=== PATIENT | female | born 1980 | race Caucasian/White ===

== ENCOUNTER → 2019-12-09 | Outpatient (CLI) | payer BC ==
[~2019-12-09] MED LIST: HYDACE5 PO
[2019-12-13 16:10] LABS: HPV 16 Negative (Negative); HPV 18 Negative (Negative); HPV OTHER HR TYPES Negative (Negative)
== END | disposition home or self-care (01) ==
LOC: LAB SHORT 17:50 → OLS 17:50
PROVIDERS: Student in an Organized Health Care Education/Training Program
DX: Z12.4 Encounter for screening for malignant neoplasm of cervix (principal)
CPT/HCPCS: 87624; G0123

== ENCOUNTER → 2020-01-13 | Outpatient (CLI) | payer BC, OTHER ==
[2020-01-14 03:59] LABS: Candida species (DNA Probe) Negative (NEGATIVE); G. vaginalis (DNA Probe) Positive (NEGATIVE); T. vaginalis (DNA Probe) Positive (NEGATIVE)
[2020-01-14 07:10] LABS: HIV SCREEN 4TH GENERATION WRFX Non Reactive (Non Reactive)
[2020-01-18 03:09] LABS: CHLAMYDIA TRACHOMATIS, NAA Negative (Negative); NEISSERIA GONORRHOEAE, NAA Negative (Negative)
== END | disposition home or self-care (01) ==
LOC: LAB 16:23 → LAB SHORT 16:23
PROVIDERS: Student in an Organized Health Care Education/Training Program
DX: Z11.59 Encounter for screening for other viral diseases (principal); N89.8 Other specified noninflammatory disorders of vagina
CPT/HCPCS: 86592; 86803; 87389; 87480; 87491; 87510; 87591; 87660

== ENCOUNTER 2020-02-27 08:27 | Emergency (ER) | payer OTHER, BC ==
[~2020-02-27] VITALS: Ht 157.5 cm; Wt 53.1 kg
[2020-02-27] MEDS ORDERED: Robaxin-750750 MG PO (09:10)
[2020-02-27] MEDS ORDERED: IBUP800 PO (09:10)
== END 2020-02-27 09:37 | disposition home or self-care (01) ==
LOC: ER 08:27
DX: M54.5 Low back pain (principal); G89.29 Other chronic pain; R20.2 Paresthesia of skin; F17.210 Nicotine dependence, cigarettes, uncomplicated
CPT/HCPCS: 99283

== ENCOUNTER → 2020-05-30 | Outpatient (CLI) | payer BC ==
[~2020-05-30] MED LIST changes: +IBUP800 PO; +Robaxin-750750 MG PO
[2020-05-31 10:07] LABS: Candida species (DNA Probe) Negative (NEGATIVE); G. vaginalis (DNA Probe) Negative (NEGATIVE); T. vaginalis (DNA Probe) Negative (NEGATIVE)
[2020-06-02 02:07] LABS: CHLAMYDIA TRACHOMATIS, NAA Negative (Negative)
== END ==
LOC: LAB 19:08 → LAB SHORT 19:08
PROVIDERS: Student in an Organized Health Care Education/Training Program
DX: N76.0 Acute vaginitis (principal)
CPT/HCPCS: 87070; 87205; 87480; 87491; 87510; 87591; 87660